=== PATIENT | male | born 1965 | race Caucasian/White ===

== ENCOUNTER 2018-08-15 09:17 | Day surgery (SDC) | payer OTHER ==
[~2018-08-15] VITALS: Ht 182.9 cm; Wt 101.1 kg
[2018-08-15] VITALS (20 sets, daily range): BP systolic 119–150; BP diastolic 75–102; PULSE 82–96; RESP 13–22; Ht 182.9 cm; Wt 101.1 kg
[~2018-08-15 09:17] MED LIST: FLEXERIL; TRAM50TA2 PO
[2018-08-15] MEDS ORDERED: NEOSTIGMINE 3 MG/3 ML SYRINGE ONE (11:38)
[2018-08-15] MEDS ORDERED: ROCURONIUM 50 MG INJ ONE (11:38)
[2018-08-15] MEDS ORDERED: GLYCOPYRROLATE 0.4 MG INJ ONE (11:38)
[2018-08-15] MEDS ORDERED: MEPERIDINE 100 MG INJ ONE (11:38)
[2018-08-15] MEDS ORDERED: SUCCINYLCHOLINE CHLORIDE 100 MG/5 ML SYG IV ONE (11:38)
[2018-08-15] MEDS ORDERED: LIDOCAINE 2% (SDV) 5 ML INJ ONE (11:38)
[2018-08-15] MEDS ORDERED: PROPOFOL 20 ML ONE (11:38)
--- NOTE | 2018-08-15 11:54 | PREAC ---
Date/Time of Note Date/Time of Note DATE: 08/15/18 TIME: 11:53 Anesthesia Eval and Record Evaluation Time Pre-Procedure Interview DATE: 08/15/18 TIME: 11:53 Age 53 Sex male NPO: 8 hrs Preoperative diagnosis Osteochondral lesion, right knee Planned procedure Operative arthroscopy, loose body removal, right medial femoral condyle osteochondral lesion excision, microfracture and drilling, right iliac crest bone marrow aspiration, insertion of cartilage Past Medical History Past Medical History: Includes GI: Obesity Surgery & Anesthesia Issues No known issue Meds Anticoagulation: No Beta Humberto within 24 hr: No Reason Beta Humberto not given: Pt. not on B-Humberto Discontinued Reported Medications [Flexeril] No Conflict Check, NEEDED 09/02/11 Tramadol HCl (Tramadol HCl) 50 Mg Tablet, 50 MG PO NEEDED 09/02/11 Meds reviewed: Yes Allergies Coded Allergies: No Known Drug Allergies (Verified Allergy, Unknown, 08/15/18) PER WRITTEN ORDER Anesthetics - Olivia Type- Parabens (Verified Adverse Reaction, Unknown, NAUSEA, 08/15/18) Allergies Reviewed: Yes Labs/Studies Labs Reviewed: Reviewed by anesthesiologist test: N/A Pre-procedure Exam Last vitals Vital Signs Date Temp Pulse Resp B/P (MAP) Pulse Ox O2 O2 Flow FiO2 Time Delivery Rate 08/15/18 98.0 82 16 133/75 98 Room Air 10:19 (94) Airway: Adequate mouth opening Mallampati: Mallampati II Teeth: Normal Lung: Normal Heart: Normal ASA Physical Status ASA physical status: 2 Emergency: None Planned Anesthetic General/MAC: LMA Planned Pain Management Parenteral pain med Pre-operative Attestations Prior to commencing anesthesia and surgery, the patient was re-evaluated, there was verification of: *The patient's identity *The results of appropriate recent lab work and preoperative vital signs *The above evaluation not changing prior to induction *Anesthetic plan, risk benefits, alternative and complications discussed with patient/family; questions answered; patient/family understands, accepts and wishes to proceed. WESLEY SALGADO MD Aug 15, 2018 11:54
[2018-08-15] MEDS ORDERED: SODIUM CL BACTERIOSTATIC 30 ML INJ ONE (12:19)
[2018-08-15] MEDS ORDERED: HEPARIN 1000 UNITS/ML 10 ML INJ ONE (12:19)
[2018-08-15] MEDS ORDERED: THROMBIN (BOVINE) 5,000 UNIT VIAL TP ONE ×2 (12:31→14:09)
[2018-08-15] MEDS ORDERED: ROPIVACAINE 0.5 % 30 ML VIAL ONE ×2 (12:31→14:09)
[2018-08-15] MEDS ORDERED: GELATIN SIZE 100 SPONGE ONE ×2 (12:31→14:09)
[2018-08-15] MEDS ORDERED: POLYMYXIN/BACITRACIN 1L IRRIG ONE ×2 (12:31→14:11)
[2018-08-15] MEDS ORDERED: POVIDONE IODINE 10% 28.4 GM OINT ONE (14:10)
[2018-08-15] MEDS ORDERED: POLYMYXIN/BACITRACIN 1L IRRIG IRR ONE (14:17)
[2018-08-15] MEDS ORDERED: OXYCODONE/ACETAMINOPHEN (5/325) TAB PO PRN ×4 (14:30→15:30)
[2018-08-15] MEDS ORDERED: FENTAnyl 50 MCG/ML VIAL IV PRN ×3 (14:30)
[2018-08-15] MEDS ORDERED: MIDAZOLAM 1 MG/ML 2 ML INJ IV PRN (14:30)
[2018-08-15] MEDS ORDERED: LABETALOL HCL 20MG INJ IV PRN (14:30)
[2018-08-15] MEDS ORDERED: hydrALAzine 20 MG INJ IV PRN (14:30)
[2018-08-15] MEDS ORDERED: DIPHENHYDRAMINE 50 MG INJ IV PRN (14:30)
[2018-08-15] MEDS ORDERED: METOCLOPRAMIDE 10 MG INJ IV PRN (14:30)
[2018-08-15] MEDS ORDERED: MEPERIDINE 25 MG INJ IV PRN (14:30)
[2018-08-15] MEDS ORDERED: EPHEDrine SULFATE 50 MG/5 ML SYG IV PRN (14:30)
[2018-08-15] MEDS ORDERED: ONDANSETRON 4 MG INJ IV PRN ×2 (14:30→15:30)
[2018-08-15] MEDS ORDERED: HYDROmorphONE 1 MG/5 ML IV SYRINGE IV PRN ×3 (14:30)
[2018-08-15] MEDS ORDERED: SOD CHLORIDE 0.9% 1,000 ML IV SCH (15:25)
--- NOTE | 2018-08-15 15:25 | OPPN ---
Date/Time of Note Date/Time of Note DATE: 08/15/18 TIME: 15:25 Operative Report Preoperative Diagnosis Right knee medial femoral condyle osteochondral fracture Postoperative Diagnosis Right knee medial femoral condyle osteochondral fracture Operation/Procedure Performed Right knee medial femoral condyle osteochondral fracture arthroscopic debridement with BMAC iliac crest aspirate Surgeon see signature line political science research assistant Nathen Bonilla MD Anesthesia: general Estimated blood loss: minimal Transfusion Required none Specimen Right knee medial femoral condyle osteochondral fracture Grafts/Implants none Complications none MATHIEU SIMMONS MD Aug 15, 2018 15:25
[2018-08-15] MEDS ORDERED: morphine 2 MG INJ IV PRN (15:30)
--- NOTE | 2018-08-15 16:36 | OPR ---
DATE OF OPERATION: 08/15/2018 PREOPERATIVE DIAGNOSES: 1. Large osteochondral lesion of the right medial femoral condyle. 2. Rule out tear of the menisci. 3. Rule out osteochondral loose bodies. POSTOPERATIVE DIAGNOSES: 1. Tear lateral meniscus, right knee. 2. Large osteochondral lesion of the medial femoral condyle, 17 x 25 x 6 mm. 3. Large osteochondral loose body 25 x 12 mm. 4. 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 5. 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 OPERATION PERFORMED: 1. Arthroscopy, right knee. 2. Partial lateral meniscectomy. 3. Removal of the large osteochondral loose body of the knee, 25 x 12 mm. 4. Chondroplasty medial femoral condyle and medial tibial plateau and patella. 5. Bone marrow aspiration, right iliac crest. 6. Insertion of bone marrow aspirate into the right knee. SURGEON: Mathieu Simmons MD MARKET RESEARCH SENIOR PROJECT MANAGER: Sundeep Bonilla MD ANESTHESIA: General. TOURNIQUET TIME: Zero. DESCRIPTION OF PROCEDURE: The patient taken to the operating room and placed in supine position. Sa tisfactory general anesthesia was administered, 2 grams Ancef intravenously. The right knee was prep ped and draped in the usual manner. The right lower extremity was prepped and draped in usual manner including the iliac crest all the way down to the foot. The right knee was draped off and we approa ched the right iliac crest first. A small ken was made over the iliac crest by pulling the skin up. The Jamshidi needle was inserted. Two 30 mL syringes of bone marrow aspirate were obtained and was given to the Arthrex representativ e to spin down the bone marrow aspirate. The wounds were irrigated clear. The wounds were closed wi th 4-0 black nylon. Steri-Strips were applied. Gloves were changed. All new instruments were used. The right knee was approached the knee was infi ltrated with saline. Standard anterior lateral portal was established. Undersurface of the patella had grade 2 chondromalacia along the central portion of the patella. Medial and lateral looked relat ively smooth. The trochlea was relatively smooth. There was some rimming osteophytes on the medial femoral condyle. Lateral gutter had no loose bodies with a lot of synovitis. Lateral compartment wa s entered. There was some degenerative tearing of the lateral meniscus in the mid zone and anterior horn of the lateral femoral condyle, or tibial plateau was smooth and glistening with minimal chondro malacia. Anterior and posterior cruciates were intact, origins and insertions. However, there was a very large osteochondral lesion of the medial femoral condyle that was devoid of any cartilage on th e medial portion of the posterior cruciate ligament was attached to some of it. The medial meniscus was smooth and glistening and looked intact. A probe was inserted. The medial meniscus was palpated and was intact. The osteochondral lesion was debrided. All loose pieces of cartilage and bone were excised. Care was taken to maintain the integrity of the posterior cruciate ligament. The anterior cruciate was palpated and was intact. Curved and straight baskets were used to perform a partial la teral meniscectomy. Shaver was used to smooth and contour the edges. We have seen a large osteochon dral fragment was hidden in the Hoffa pad. Using electrosurgery we removed a moderate amount of the fat pad, coagulating bleeding vessels were needed. When we did this, the osteochondral loose body fe ll out of the Hoffa's fat pad. It was quite large. A medial portal was enlarged. A grasper was ins erted and the loose body was removed. It measured approximately 25 x 12 mm with some bone on it. It clearly came from the medial femoral condyle area. All bleeders were coagulated. We felt that the lesion was too large and too deep to do a micronized cartilage. In addition, we fel t that the lesion was not a good candidate for a OMAR because of the bone loss as well. We feel that looking at the entire situation, the best indications and options may be either a large osteochondra l allograft or a medial compartment replacement. We are concerned about the amount of chondromalacia in the medial tibial plateau with some bone exposed as well, so he has more of a bipolar lesion. A chondroplasty was performed again along the medial femoral condyle and along the patella. All other loose debris was removed. Wounds were then closed with 3-0 black nylon and Steri-Strips. The bone m arrow aspirate was injected into the knee, 3 mL to facilitate healing and diminish inflammation. The bone marrow platelet-poor material was placed on the 4 x 4s. Compression dressing was then applied on the knee. We did not inject Marcaine or ropivacaine because of insertion of the bone marrow aspir ate. Compression dressing was applied on the iliac crest. A BYRON compression stocking was then place d on the leg and the leg was wrapped with soft roll and bias. We did not feel a brace was necessary because there was no major procedure done on the patient in terms of the osteochondral lesion. I will subsequently speak to the patient and his carefully about all the options, understanding the situation. In addition, I will speak with a colleague of aldo who is one of the experts [place] on the osteochondral lesions. The size in the knee and get his thoughts and recommendations abo ut whether the patient would be an adequate candidate for an allograft or whether he needs a medial c ompartment replacement at this point. At the end of procedure, sponge and needle count was correct. The patient tolerated the procedure well. COLLAR POINTER ORTHOPEDIC SURGEON: During the procedure, an orthopedic physician assistant orthopedic surgeon was used at my r equest. The orthopedic physician assistant helped with manipulating the knee, distracting the knee, finding and helping r emove the loose body and doing the bone marrow aspirate. Without a skilled orthopedic physician assistant, this could not have been done and should be compensated appropriately. Dictated By: MATHIEU SIMMONS MD RF/NTS Conf#: [id number] DID#: [id number] CC: SUNDEEP BONILLA MD;*End*
--- NOTE | 2018-08-15 16:50 | PAC ---
Date/Time of Note Date/Time of Note DATE: 08/15/18 TIME: 16:48 Post-Anesthesia Notes Post-Anesthesia Note Last documented vital signs Vital Signs Date Temp Pulse Resp B/P (MAP) Pulse Ox O2 O2 Flow FiO2 Time Delivery Rate 08/15/18 98.0 82 16 133/75 98 Room Air 10:19 (94) Activity: WNL Respiratory function: WNL Cardiovascular function: WNL Mental status: Baseline Pain reasonably controlled: Yes Hydration appropriate: Yes Nausea/Vomiting absent: Yes Comments BP: 142/86, HR: 84, RR: 18, PULSE OX: 98%, TEMP: 98.9 WESLEY SALGADO MD Aug 15, 2018 16:50
== END 2018-08-15 17:43 | disposition home or self-care (01) ==
LOC: SDS 09:17
PROVIDERS: ATTEND Orthopaedic Surgery
DX: M23.241 Derangement of anterior horn of lateral meniscus due to old tear or injury, right knee (principal); M94.261 Chondromalacia, right knee; M93.261 Osteochondritis dissecans, right knee; E66.9 Obesity, unspecified; Z68.30 Body mass index [BMI] 30.0-30.9, adult
CPT/HCPCS: 29881; J1644; J2175; J2405; J2710; J2765; 88304; 88311; J2795